=== PATIENT | male | born 2000 | race African-American/Black ===

== ENCOUNTER 2021-11-15 14:52 | Emergency (ER) | payer OTHER ==
[~2021-11-15] VITALS: Ht 180.3 cm; Wt 75.0 kg
[2021-11-15] MEDS ORDERED: PREDNISONE20 MG PO (17:59)
[2021-11-15 19:27] VITALS: BP 128/73; PULSE 91; TEMP 98.1
== END 2021-11-15 19:27 | disposition home or self-care (01) ==
LOC: COL.ER 14:52
DX: J45.901 Unspecified asthma with (acute) exacerbation (principal)

== ENCOUNTER 2022-02-08 15:42 | Emergency (ER) | payer SELFPAY ==
[~2022-02-08] VITALS: Ht 182.9 cm; Wt 74.1 kg
[~2022-02-08 15:42] MED LIST: PREDNISONE20 MG PO
[2022-02-08 15:55] VITALS: BP 104/67; TEMP 99.1
[2022-02-08] MEDS ORDERED: PROVENTIL0.09 MG/A1 IH (17:43)
[2022-02-08] MEDS ORDERED: ZITHROMAX Z PA250 MG PO (17:43)
[2022-02-08 17:54] VITALS: PULSE 105
== END 2022-02-08 17:54 | disposition home or self-care (01) ==
LOC: COL.ER 15:42
DX: J18.9 Pneumonia, unspecified organism (principal); Z20.822 Contact with and (suspected) exposure to COVID-19